=== PATIENT | female | born 1955 ===

== ENCOUNTER 2018-12-27 00:03 | Emergency (ER) | payer OTHER ==
[~2018-12-27] VITALS: Ht 167.6 cm; Wt 90.3 kg
[~2018-12-27 00:03] MED LIST: ADVAIR HFA 230/12 GM; CLARITIN10 MG PO; GABAPENTIN300 MG; LEVAQUIN750 MG PO; MEDROLPACK PO; PROVENTIL S1 ML/5 MG; TESSALON PERLE100 M1 PO; ULTRAM ER100 MG; VENTOLIN HFA18 GM IH
[2018-12-27] MEDS ORDERED: IPRATROPIU0.2 MG/1 M IH (04:13)
[2018-12-27] MEDS ORDERED: ALBUTEROL2.5 MG/3 M IH (04:13)
[2018-12-27] MEDS ORDERED: BUDESONIDE0.5 MG/2 M IH (04:13)
== END 2018-12-27 04:18 | disposition home or self-care (01) ==
LOC: ER 00:03
DX: J44.1 Chronic obstructive pulmonary disease with (acute) exacerbation (principal)

== ENCOUNTER 2019-01-06 12:16 | Outpatient (CLI) | payer OTHER ==
[~2019-01-06 12:16] MED LIST changes: +ALBUTEROL2.5 MG/3 M IH; +BUDESONIDE0.5 MG/2 M IH; +IPRATROPIU0.2 MG/1 M IH
== END 2019-01-06 12:23 | disposition home or self-care (01) ==
LOC: LAB 12:16
DX: J45.998 Other asthma (principal); J44.9 Chronic obstructive pulmonary disease, unspecified

== ENCOUNTER 2019-01-18 00:55 | Emergency (ER) | payer OTHER ==
[~2019-01-18] VITALS: Ht 167.6 cm; Wt 90.3 kg
== END 2019-01-18 06:13 ==
LOC: ER 00:55
DX: J44.0 Chronic obstructive pulmonary disease with (acute) lower respiratory infection (principal); J20.8 Acute bronchitis due to other specified organisms